=== PATIENT | male | born 1955 | race African-American/Black ===

== ENCOUNTER 2020-10-16 19:10 | Emergency (ER) | payer OTHER ==
[2020-10-16] MEDS ORDERED: KETOROLAC TROMETHAMINE 30MG/ML ONE (20:16)
[2020-10-16] MEDS ORDERED: HYDROCODONE/ACETAMINOPHEN 5/325 MG TAB ONE (20:16)
[2020-10-16] MEDS ORDERED: L.E.T. GEL 4%/0.5%/0.18% 3ML 3 ML/SYR SYG TP ONE ×2 (20:17→20:28)
[2020-10-16 20:59] LABS: APPEARANCE,URINE Clear (CLEAR); BILIRUBIN,URINE Negative (NEGATIVE); COLOR,URINE Yellow (YELLOW); GLUCOSE, URINE (UA) Negative (NEGATIVE); KETONES,URINE Negative (NEGATIVE); LEUKOCYTE ESTERASE ,URINE Negative (NEGATIVE); NITRATE,URINE Negative (NEGATIVE); OCCULT BLOOD,URINE Negative (NEGATIVE); PROTEIN,URINE Negative (NEGATIVE)
== END 2020-10-16 22:05 | disposition home or self-care (01) ==
LOC: EDH 19:10
DX: K64.5 Perianal venous thrombosis (principal); K61.0 Anal abscess
CPT/HCPCS: 46050; 81003; 96372; 99284; J1885